=== PATIENT | female | born 2000 | race Caucasian/White ===

== ENCOUNTER 2020-07-29 11:57 | Emergency (ER) | payer BC, MEDICAID, SELFPAY ==
[2020-07-29 12:08] VITALS: BP 129/83; PULSE 82; RESP 16; TEMP 37.1; O2SAT 99
--- NOTE | 2020-07-29 12:10 | ED.URI ---
HPI - URI/Sore Throat General Chief Complaint: Upper Respiratory Infection Stated Complaint: cough/congestion/headache Time Seen by Provider: 07/29/20 12:10 Source: patient and RN notes reviewed Mode of arrival: ambulatory Limitations: no limitations History of Present Illness HPI Narrative: 20-year-old female presents with concern for 9-day history of sinus congestion, facial pressure, sinus drainage, postnasal drainage, headache. Reports occasional cough. Reports 4 days into her illness she had a negative rapid Covid test. She denies any fever, body aches, chills, sweats, loss of sense of taste or smell, shortness of breath. Reports she has been using DayQuil and NyQuil with occasional relief. Reports symptoms started to improve around day 6, however symptoms have worsened in the last 2 days. Denies any known sick contacts MD elicited complaint: nasal congestion Related Data Home Medications Medication Instructions Recorded Confirmed paroxetine HCl 07/29/20 Allergies Allergy/AdvReac Type Severity Reaction Status Date / Time No Known Allergies Allergy Verified 07/29/20 12:07 Review of Systems Review of Systems: Narrative: CONSTITUTIONAL: Denies malaise, chills, sweats, or fever. EYES: Denies visual changes, redness, or discharge. ENT: Reports rhinorrhea, congestion, sinus pain, otalgia. Denies sore throat. CARDIOVASCULAR: Denies chest pain, palpitations, or edema. RESPIRATORY: Reports occasional cough. Denies dyspnea. GASTROINTESTINAL: Denies abdominal pain, nausea, vomiting, diarrhea SKIN: Denies rash or itching. MUSCULOSKELETAL: Denies myalgia. NEUROLOGIC: Denies headache. All systems reviewed & are unremarkable except as noted in HPI and below PMFSH Comments At time of signature, agree with nursing past medical, surgical, social and family history. There is no relevant family history pertinent to the presenting complaint Exam Narrative: Exam Narrative: GENERAL: Well-appearing, well-nourished, and in no acute distress. HEAD: Normocephalic EYES: PERRLA, conjunctivae clear ENT: Nares clear, turbinates edematous and erythematous, clear discharge. Mucous membranes moist. TM pearly al with dull light reflex bilaterally; no tragal tenderness. Oropharynx not erythematous without lesions. Tonsils not enlarged and without exudate, no drooling, no hoarseness, no trismus, uvula midline. NECK: Supple. No lymphadenopathy CHEST: Clear to auscultation, breath sounds equal. No wheezing, rhonchi, rales, or stridor. No respiratory distress, speaks in full sentences. HEART: Regular rate and rhythm. No murmur heard. SKIN: Warm, dry, no rash. NEURO: Alert and oriented x3. PSYCH: Normal mood and affect Course Course Emergency Course: Patient is aware of diagnosis, understands and agrees to treatment plan. Anticipatory guidance given. Patient agrees to follow-up as directed and is aware of reasons to seek care at the emergency department. Portions of this record may have been created with voice recognition software Vital Signs Vital signs: Vital Signs Temperature 98.8 F 07/29/20 12:08 Pulse Rate 82 07/29/20 12:08 Respiratory Rate 16 07/29/20 12:08 Blood Pressure 129/83 07/29/20 12:08 Pulse Oximetry 99 07/29/20 12:08 Temperature 98.8 F 07/29/20 12:08 Pulse Rate 82 07/29/20 12:08 Respiratory Rate 16 07/29/20 12:08 Blood Pressure 129/83 07/29/20 12:08 Pulse Oximetry 99 07/29/20 12:08 Reviewed. MDM - URI/Sore Throat MDM Narrative Medical decision making narrative: Differential diagnosis considered: Mcfarland virus, strep pharyngitis, allergic rhinitis, upper respiratory tract infection, sinusitis, rhinosinusitis, nasopharyngitis. viral pharyngitis, otitis media, otitis externa, pneumonia, bronchitis, viral cough syndrome, viral syndrome, and influenza. Exam findings show no acute concerns or changes; patient is non-toxic appearing and is in no distress. Patient is appropriate for outpatien
== END 2020-07-29 12:27 | disposition home or self-care (01) ==
PROVIDERS: Emergency Provider Nurse Practitioner
DX: J01.90 Acute sinusitis, unspecified (principal)
CPT/HCPCS: 99213; G0463

== ENCOUNTER 2021-02-10 15:52 | Emergency (ER) | payer BC, MEDICAID, SELFPAY ==
[2021-02-10 16:04] VITALS: BP 135/71; PULSE 107; RESP 16; TEMP 37; O2SAT 97
--- NOTE | 2021-02-10 16:20 | ED.GENADULT ---
HPI - General Adult General Chief complaint: Upper Respiratory Infection Stated complaint: BODY ACHES/HEADACHE Source: patient Mode of arrival: ambulatory Limitations: no limitations History of Present Illness HPI narrative: Patient is a 20-year-old female presents to the [facility] via POV for evaluation of mold exposure for 1 month. Additionally, patient reports she believes she is having symptoms of mold exposure such as myalgias and migraines. She states she has had a migraine for the past 9 days. Migraine is constant and pressure-like in nature. Current pain is 7 out of 10 on a pain scale. She also has experiencing a sore throat in the mornings and evenings. She has had some nasal congestion and chills as well. Symptoms resolved when she went home over the weekend. Ibuprofen improves symptoms. Movement worsens muscle aches. Of note, she states she has mold in her apartment complex which is why she believes she has mold poisoning. She also states her roommate has had a cough for 4 weeks. Related Data Home Medications Medication Instructions Recorded Confirmed paroxetine HCl 07/29/20 acyclovir 02/10/21 Allergies Allergy/AdvReac Type Severity Reaction Status Date / Time No Known Allergies Allergy Verified 07/29/20 12:07 Review of Systems Review of Systems: Denies history of COPD, bronchitis, asthma, and pneumonia. Denies current/past tobacco use. Pertinent negatives: fever, sweats, change in appetite, fatigue, skin color changes, nasal discharge, dizziness, lymphadenopathy, sinus problems, drooling, difficulty swallowing, ear pain/drainage, chest pain, heart murmurs, heart palpitations, cough, shortness of breath, wheezing, cyanosis, hemoptysis, hoarseness, orthopnea, pleuritic pain, nausea, vomiting, diarrhea, and myalgias. [facility] Past Medical History Medical History Anxiety Depression HSV-2 (herpes simplex virus 2) infection Exam Narrative: GENERAL: Well-appearing, well-nourished, and in no acute distress. HEAD: Normocephalic, atraumatic. No sinus tenderness or facial swelling appreciated. EYES: PERRLA and EOMI. No evidence of erythema, swelling, or drainage. ENT: Bilateral external ears and ear canals normal. Bilateral TMs are normal.No TM perforation. Nares clear, no rhinorrhea or epistaxis. Bilateral turbinates without erythema/ swelling. Mucous membranes moist and pink. Uvula is midline without erythema and swelling. No evidence of petechial rash, cobblestoning, lesions, ulcers, erythema, swelling, exudates, peritonsillar abscess, tenting, or drooling. Breath odor and voice normal. NECK: Supple. No Lymphadenopathy or nuchal rigidity appreciated. CHEST: Bilateral lung ly are clear to auscultation. No respiratory distress. No evidence of cough or pleuritic cp upon examination. HEART: Regular rate and rhythm. No murmur, gallop, or rub heard. EXTREMITIES: Normal range of motion. No edema. SKIN: Warm, dry, no rash. NEURO: No focal deficits. Alert and oriented x3. Course Course Emergency Course: The patient/guardian displays adequate decision making capability and despite a detailed discussion of alternatives, benefits, risks, and consequences refuses influenza and Covid testing. Vital Signs Vital signs: Vital Signs Temperature 98.6 F 02/10/21 16:04 Pulse Rate 107 H 02/10/21 16:04 Respiratory Rate 16 02/10/21 16:04 Blood Pressure 135/71 02/10/21 16:04 Pulse Oximetry 97 02/10/21 16:04 Temperature 98.6 F 02/10/21 16:04 Pulse Rate 107 H 02/10/21 16:04 Respiratory Rate 16 02/10/21 16:04 Blood Pressure 135/71 02/10/21 16:04 Pulse Oximetry 97 02/10/21 16:04 Due to an elevated blood pressure and heart rate, I had a detailed discussion with the patient and/or guardian regarding the need for follow-up with their primary care provider within the next 3-4 days. Patient verbalized understanding and agreed.
== END 2021-02-10 16:41 | disposition home or self-care (01) ==
PROVIDERS: Emergency Provider Nurse Practitioner Family
DX: T78.40XA Allergy, unspecified, initial encounter (principal)
CPT/HCPCS: 99213; G0463

== ENCOUNTER 2021-10-28 11:50 | Emergency (ER) | payer BC, MEDICAID, SELFPAY ==
[2021-10-28 11:55] VITALS: BP 134/72; PULSE 66; RESP 16; TEMP 36.1; O2SAT 99
[2021-10-28 11:59] VITALS: BP 134/72; PULSE 66; RESP 16; TEMP 36.1; O2SAT 99
--- NOTE | 2021-10-28 12:09 | ED.WOUNDLAC ---
HPI - Wound/Laceration General Chief Complaint: Wound/Laceration Stated Complaint: FINGER LACERATION Time Seen by Provider: 10/28/21 12:10 Source: patient Mode of arrival: ambulatory Limitations: no limitations History of Present Illness HPI narrative: 21-year-old female presented for complaint of laceration to right hand fourth digit. Injury occurred last night when she cut her hand on the mandolin. She is cleaned it with soap and water and has applied pressure. She states it continued to bleed until about 30 minutes [employer]. Tetanus is up-to-date. Related Data Home Medications Medication Instructions Recorded Confirmed paroxetine HCl 20 mg tablet 1 tablet PO DAILY 10/28/21 10/28/21 Allergies Allergy/AdvReac Type Severity Reaction Status Date / Time No Known Allergies Allergy Verified 10/28/21 11:58 Review of Systems Review of Systems: CONSTITUTIONAL: Denies body aches, fever, chills, or sweats. CARDIOVASCULAR: Denies chest pain, palpitations, or edema. RESPIRATORY: Denies cough or dyspnea. SKIN: rash, itching, wounds. MUSCULOSKELETAL: Denies back pain, joint pain, or myalgia. NEUROLOGIC: Denies headache, numbness, tingling, or weakness. [facility] Past Medical History Medical History Anxiety Depression HSV-2 (herpes simplex virus 2) infection Comments At time of signature, I have reviewed and agree with nursing past medical, surgical, social and family history unless otherwise noted. Please see nursing chart for further information. There is no relevant family history pertinent to the presenting complaint Exam Narrative: GENERAL: Well-appearing CHEST: Clear to auscultation. No respiratory distress. HEART: Regular rate and rhythm. SKIN: Warm, dry. Right 4th digit distal finger avulsion approx 0.5 cm diameter, center with dark pink subcutaneous layer exposed, no active drainage or bleeding NEURO: Alert and oriented x3. Course Course Emergency Course: Patient is aware of diagnosis, understands and agrees to treatment plan. Anticipatory guidance given. Patient agrees to follow-up as directed and is aware of reasons to seek care at the emergency department. Portions of this record may have been created with voice recognition software Level of Care: Express Care Visit Vital Signs Vital signs: Vital Signs Temperature 97.0 F L 10/28/21 11:55 Pulse Rate 66 10/28/21 11:55 Respiratory Rate 16 10/28/21 11:55 Blood Pressure 134/72 10/28/21 11:55 Pulse Oximetry 99 10/28/21 11:55 Oxygen Delivery Room Air 10/28/21 11:55 Temperature 97.0 F L 10/28/21 11:59 Pulse Rate 66 10/28/21 11:59 Respiratory Rate 16 10/28/21 11:59 Blood Pressure 134/72 10/28/21 11:59 Pulse Oximetry 99 10/28/21 11:59 Oxygen Delivery Room Air 10/28/21 11:59 Reviewed MDM - Wound/Laceration MDM Narrative Medical decision making narrative: skin avulsion to right 4th digit, cleaned and applied non adhesive dressing. Advised on wound care. Differential Diagnosis Differential diagnosis: Likely laceration, abrasion and avulsion of skin Discharge Plan Discharge Clinical Impression: Avulsion of skin Patient Disposition: Home, Self-Care Condition: Stable Instructions: Antibiotic Form, Skin Avulsion (ED) Additional Instructions: Keep the area clean and dry - cleanse with warm water and mild soap and allow to fully dry. Ok to apply neosporin to the site Keep it open to air (no bandages) as often as possible; cover it when at risk for contamination Watch for worsening symptoms including pain, redness, swelling, streaking, pus/drainage, fever. Take the antibiotic if symptoms worsen. Go to the ER with any of these symptoms or concerns. Follow up with primary care provider in 1-2 weeks as needed. Prescriptions: New cephalexin 500 mg capsule 500 mg PO Q12H 5 Days Qty: 10 0RF No Action paroxetine HCl 20 mg tablet
== END 2021-10-28 12:20 | disposition home or self-care (01) ==
PROVIDERS: Emergency Provider Nurse Practitioner Family
DX: S61.204A Unspecified open wound of right ring finger without damage to nail, initial encounter (principal); W27.8XXA Contact with other nonpowered hand tool, initial encounter; F41.9 Anxiety disorder, unspecified; F32.A Depression, unspecified
CPT/HCPCS: 99213; G0463